=== PATIENT | male | born 1940 | race Caucasian/White ===

== ENCOUNTER → 2024-03-28 15:56 | Outpatient (REF) | payer OTHER, SELFPAY | LOC: HWRAD 15:56 | PROVIDERS: ATTENDING PHYSICIAN Internal Medicine | DX: Z91.81 History of falling (principal) | CPT/HCPCS: 72072; 72100 ==

== ENCOUNTER 2024-08-09 09:49 | Day surgery (SDC) | payer OTHER, SELFPAY ==
[2024-08-09 10:15] LABS: Hematocrit 36.7 % (39.0-52.0); Hemoglobin 12.8 g/dL (13.0-18.0); Mean Corp Hgb Conc. 34.9 g/dL (33.0-37.0); Mean Corpuscular Hgb 36.9 pg (27.0-31.0); Mean Corpuscular Volume 105.8 fL (80.0-94.0); Mean Platelet Volume 10.7 fL (7.4-10.4); Platelet Count 194 10^3/uL (130-400); Red Blood Cell Count 3.47 10^6/uL (4.70-6.10); Red Cell Dist. Width 12.9 % (11.5-14.5); White Blood Cell Count 8.6 10^3/uL (4.8-10.8)
[2024-08-09 10:22] VITALS: BP 160/80
[2024-08-09 10:23] VITALS: BP 160/80
[2024-08-09 10:27] VITALS: BMI 25.9
[2024-08-09 10:31] LABS: ALT (SGPT) 16 U/L (0-50); AST (SGOT) 23 U/L (17-59); Albumin 4.6 g/dl (3.5-5.0); Alkaline Phosphatase 70 U/L (38-126); Blood Urea Nitrogen 22 mg/dl (9-20); Calcium 9.6 mg/dl (8.4-10.2); Carbon Dioxide 25 mmol/L (22-30); Chloride 105 mmol/L (98-107); Estimated Creatinine Clearance 48 ml/min; Glucose 146 mg/dl (70-99); Potassium 4.9 mmol/L (3.5-5.1); Sodium 141 mmol/L (135-145); Total Bilirubin 0.3 mg/dl (0.2-1.3); eGFR > 60.00
[2024-08-09 10:36] LABS: Glucose - Point of Care 133 mg/dl (70-99)
--- NOTE | 2024-08-09 12:06 | PTCARENOTE ---
pt son Sandro sitting at bedside with pt, who is uncomfortable related to knee and lower back issues, this nurse attempted to reposition and change pt from chair to stretcher, son not happy and voiced why was he brought in at 10am, who is
responsible for scheduling and he heard that procedure wasn't going off until after 12noon, apologized to son for long wait, notified charge of issue, pt fell asleep at present time, continue to pend procedure for generator change
[2024-08-09 12:28] LABS: Glucose - Point of Care 113 mg/dl (70-99)
[2024-08-09 14:02] LABS: Glucose - Point of Care 104 mg/dl (70-99)
[2024-08-09 15:39] VITALS: BP 127/63
--- NOTE | 2024-08-09 16:05 | ITS.CL.PACE ---
[employer] - Pacemaker Implant
Pacemaker Implant
Procedure Report:
PACEMAKER GENERATOR CHANGE
Date of Procedure: August 09, 2024
Primary Care Provider: Dr. Rebecca De Jesus
Primary graduate fellow: Dr. Vijay Medellin
PROCEDURES:
1. Removal of multi chamber PPM (CHILD CARE COUNSELOR) generator at [facility]
2. Implant of new multi chamber PPM (CHILD CARE COUNSELOR) generator
INDICATION FOR PROCEDURE:
1. PPM generator at [facility]
2. 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
The patient was prepped and draped in sterile fashion. Lidocaine with epi was used for local anesthesia. An incision was made along the previous incision and the device and leads were carefully dissected from the pocket. Hemostasis was obtained
with electrocautery. The leads were from the device header and tested using an external analyzer. The pocket was liberally irrigated with antibiotic solution. Once testing (see below) showed adequate and stable function, the leads were
connected to the generator header and the leads and generator were placed within the pocket. The pocket was closed in the typical fashion.
EXPLANTED PPM GENERATOR:
Medtronic W4TR 01, serial number [employer] [id number]
IMPLANTED PPM GENERATOR:
[ ] Medtronic [id number], SN [id number] [ ] G
RETAINED LEADS:
Existing RA lead: Medtronic [id number]
Existing RV lead: Medtronic [id number]
Existing LV lead: Medtronic [id number], SN: [id number]
DEVICE TESTING:
Sensing: RA 2.3 mV, RV (n/a, no escape)
Capture: RA 1.5 V @ 0.4ms, RV 0.5 V @ 0.4ms, LV 2.5V @ 0.4 ms
Ohms: RA 475, RV 620, LV 703
FINAL PROGRAMMING
Herber Pacing: DDDR 60 - 130 ppm
COMPLICATIONS:
None
CONCLUSIONS:
1. Successful explant of CHILD CARE COUNSELOR] chamber permanent pacemaker
2. Successful implant of CHILD CARE COUNSELOR chamber permanent pacemaker
RECOMMENDATIONS:
1. In-Office wound check in 7-10 days.
Copy to:
Dr. Rebecca De Jesus
Dr. Vijay Meedllin
== END 2024-08-09 16:14 | disposition home or self-care (01) ==
LOC: CATH 09:49
PROVIDERS: ATTENDING PHYSICIAN Internal Medicine Cardiovascular Disease; FAMILY PHYSICIAN Internal Medicine; OTHER PHYSICIAN Internal Medicine Cardiovascular Disease
DX: Z45.010 Encounter for checking and testing of cardiac pacemaker pulse generator [battery] (principal); I44.2 Atrioventricular block, complete; R00.1 Bradycardia, unspecified; I42.9 Cardiomyopathy, unspecified
CPT/HCPCS: 33229; 80053; 82962; 85027; C2621

== ENCOUNTER → 2024-10-08 10:08 | Outpatient (REF) | payer OTHER, SELFPAY | LOC: HWRAD 10:08 | PROVIDERS: ATTENDING PHYSICIAN Internal Medicine | DX: R05.3 Chronic cough (principal) | CPT/HCPCS: 71046 ==